=== PATIENT | male | born 1945 ===

== ENCOUNTER 2018-01-27 12:37 | Emergency (ER) | payer OTHER ==
[~2018-01-27] VITALS: Ht 177.8 cm; Wt 77.1 kg
[2018-01-27] MEDS ORDERED: AMARYL 4 (13:17)
[2018-01-27] MEDS ORDERED: PLAVIX75 MG (13:17)
[2018-01-27] MEDS ORDERED: JANUMET XR 50-1 EAC1 (13:17)
[2018-01-27] MEDS ORDERED: HYZAAR 50-12.51 EACH (13:17)
[2018-01-27] MEDS ORDERED: ASPIR 8181 MG (13:18)
[2018-01-27] MEDS ORDERED: CRESTOR20 MG (13:18)
[2018-01-27] MEDS ORDERED: LOPRESSOR25 MG (13:18)
== END 2018-01-27 16:54 | disposition left against medical advice (07) ==
LOC: ER 12:37
DX: Z53.29 Procedure and treatment not carried out because of patient's decision for other reasons (principal)